=== PATIENT | male | born 1970 | race Caucasian/White ===

== ENCOUNTER 2020-05-30 17:50 | Emergency (ER) | payer OTHER ==
[2020-05-30] MEDS ORDERED: HYDROcodone/Acetaminophen 10/325 mg Tablet ONE ×2 (19:24→22:32)
== END 2020-05-30 22:48 ==
LOC: ERS 17:50 → EEVIPCON 17:50 → ERS 22:48
DX: M25.572 Pain in left ankle and joints of left foot (principal); M25.562 Pain in left knee; W18.30XA Fall on same level, unspecified, initial encounter
CPT/HCPCS: 93923